=== PATIENT | female | born 1955 | race Caucasian/White ===

== ENCOUNTER 2017-02-10 08:44 | Inpatient (IN) | payer BC ==
[2017-02-03 16:03] LABS: HEMATOCRIT 34.3 % (36.0-48.0); HEMOGLOBIN 11.1 g/dL (12.0-16.0)
[2017-02-03 16:15] LABS: BUN (BLOOD UREA NITROGEN) 5 MG/DL (6-23); CALCIUM, SERUM 8.7 MG/DL (8.5-10.4); CHLORIDE, SERUM 98 MMOL/L (96-112); CO2 (CARBON DIOXIDE) 30 MMOL/L (24-34); CREATININE 0.74 MG/DL (0.55-1.02); GFR AFRICAN AMERICAN 100 ML/MIN (>=60); GFR NON AFRICAN AMERICAN 86 ML/MIN (>=60); GLUCOSE, SERUM 126 MG/DL (60-99); POTASSIUM, SERUM 4.5 MMOL/L (3.5-5.3); SODIUM, SERUM 134 MMOL/L (135-148)
--- NOTE | ~2017-02-10 | CN ---
Consultation Report [facility] [address] [place]. [address] NAME: DOUG MARCH : 51 STATUS : ADM IN PAT#: [id number] AGE: 61 ADM/REG DATE : 02/10/17 MR#: [id number] REPORT SERV DATE: 02/16/17 DICTATED BY: TAB MONTENEGRO DATE: 02/16/17 REPORT STATUS : Draft TRANSCRIBED BY: MODL DATE: 02/16/17 CONSULTATION DATE OF CONSULTATION: REASON FOR CONSULTATION: Hyponatremia. HISTORY OF PRESENT ILLNESS: This is a fairly pleasant, 61-year-old, obese, , female patient we were asked to see for evaluation of hyponatremia. It appears that she is chronically hyponatremic with sodiums ranging 129-[address] back to 2010. Today, her sodium reads at 125, and she is postop day [address] Compa Rodriguez's surgical intervention of cervical spondylosis with cord and nerve root compression with C4-C5, C5-C6, and C6-C7 anterior interbody arthrodesis with application of prosthetic devices C4-5, C5-6, C6-7 and anterior instrumentation on C4 through 7. It appears that she was provided lactated Ringer's at surgical intervention at approximately 1200 mL total. Postoperatively, she received normal saline on 02/12 at 80 mL an hour and continues to receive infusing saline at the point of evaluation. The patient states that she is chronically known to be hyponatremic and has been followed in our office by Dr. Lee Robles. I do not have an indication at this point, baseline sodium at our office. She has been restricted on p.o. fluids as she is known to have chronic SIADH. She is maintained chronically on Prozac medication and has been so since November of this year per her recall. The medication monitor would include chronic SIADH as a probable side-effect sequelae. The patient is awake and alert this morning, lying in bed during evaluation. She is anxious to exit home and is disappointed that she continues to have difficulty that has maintained her hospitalization. She denies current chest pain. No nausea, vomiting, or diarrhea. PAST MEDICAL HISTORY: Includes the following: Chronic hyponatremia with previous SIADH diagnosis; diabetes mellitus type 2, insulin dependent; chronic pain; hypertension; irritable bowel syndrome; Angulo's esophagus; obesity; cervical spondylosis with surgical correction as listed above; history of hyperthyroidism; history of depression and anxiety; and IBS. REVIEW OF SYSTEMS: Completed. Please see HPI for pertinent details. SOCIAL HISTORY: No ETOH. No illicit drugs. No tobacco by our review. CURRENT MEDICATIONS AND ALLERGIES: As follows: She lists allergies to Savella, sulindac, doxycycline, fluconazole, and amlodipine. Active medications include, Zovirax 400 mg p.o. b.i.d., atenolol 50 mg p.o. b.i.d., Bentyl 20 mg p.o. b.i.d., ProSom 2 mg p.o. at bedtime, fentanyl one patch topically q.72, Prozac 40 mg p.o. daily, Lasix 20 mg daily, sliding scale NovoLog insulin 24 units at bedtime, Consultation Report [address] [place]. [address] NAME: DOUG MARCH : 51 STATUS : ADM IN [facility]#: [id number] AGE: 61 ADM/REG DATE : 02/10/17 MR#: [id number] REPORT SERV DATE: 02/16/17 DICTATED BY: TAB MONTENEGRO DATE: 02/16/17 REPORT STATUS : Draft TRANSCRIBED BY: MANNY DATE: 02/16/17 degludec, Prevacid 30 mg p.o. b.i.d., Linzess 290 mcg p.o. daily, Prinivil 40 mg p.o. daily, Robaxin 750 mg p.o. t.i.d. p.r.n., oxycodone 15 mg p.o. daily p.r.n. four times daily, Phenergan 25 mg p.o. t.i.d. p.r.n. PHYSICAL EXAMINATION: VITAL SIGNS: Blood pressure 155/63, temperature at 98.3, heart rate 93 beats per minute and regular. GENERAL: She is awake, alert, and oriented x3, in no acute distress. 1500 mL and no indication of urinary output is recorded; however, the patient states that she has had reasonable urinary output. HEENT: Normocephalic, atraumatic. Normal ocular movements. No scleral icterus. No conjunctival pallor is appreciated. NECK: Supple without thyromegaly. No JVD. No mass. There is bandage to the right front side of her neck. CHEST: Shows positive S1 and S2. No rubs or gallops. LUNGS: Diminished. Clear to auscultation throughout. Normal expansion and effort bilaterally. GI: She has an obese, rounded abdomen. Positive bowel sounds in all four quadrants. No appreciable mass or tenderness. : Examination is deferred. EXTREMITIES: Show positive pulses in all four extremities. No clubbing, cyanosis, or edema. NEUROLOGIC: She appears to be grossly intact. Nonfocal. SKIN: Warm, dry, and intact to visualized surfaces with bandages to the neck area as above. PSYCH: She appears to be of appropriate mood and affect. LABORATORY DATA: Pertinent laboratories and imaging to this evaluation: Most recent electrolyte profile shows a sodium of 125, potassium 3.9, chloride 87, CO2 of 27, BUN 9, creatinine 0.68, reflected GFR at 93 mL/minute, glucose 198, calcium 8.4. Most recent CBC on date of surgery: 12.3 white count, platelets of 301, hemoglobin 12.1, and hematocrit at 37.1. No further data in regard to that information exists post that date. IMPRESSION AND PLAN: This is an obese, , female patient with chronic pain issues, status post surgical intervention by Dr. Compa Rodriguez and is now postop day 6 with chronic hyponatremia noted by history with a historical diagnosis of syndrome of inappropriate secretion of antidiuretic hormone, who received lactated Ringer's during surgical intervention at 1200 mL total and has received normal saline postoperatively and continues to receive normal saline. Currently, she is maintained chronically on Prozac which may also be contributing to her further difficulty with hyponatremia with syndrome of inappropriate secretion of antidiuretic hormone as a sequelae of use of that medication listed in its marker. Currently, we will INT her fluids, check urine sodium, urine osm. Restrict her fluid intake at 1000 mL. Bumex 2 mg, now added in 8 hours. Likely that this is a continuation of her chronic syndrome of inappropriate secretion of antidiuretic hormone, we will work to assist her in returning her sodium to at least 130 or above. See no indication clinically from a neurologic standpoint, to be any more aggressive with the use of other Consultation Report [place] [address] [place]. [address] NAME: DOUG MARCH DUSTIN : 51 STATUS : ADM IN PAT#: [id number] AGE: 61 ADM/REG DATE : 02/10/17 MR#: [id number] REPORT SERV DATE: 02/16/17 DICTATED BY: TAB MONTENEGRO DATE: 02/16/17 REPORT STATUS : Draft TRANSCRIBED BY: MANNY DATE: 02/16/17 tools. May consider, if she is not responsive to fluid restriction over the next 24 hours in measures as taken above, the use of tolvaptan if clinically warranted. Otherwise, maintain her other medications and other current treatment plan which will be deferred to the hospitalist team. Further modification of treatment plan may be made based on her clinical presentation, the patient's laboratory results, and further consultation with Renal attending. We appreciate the consultation. We are glad to follow this patient with you. DICTATED BY: Macario Jacob NP JR/MANNY Tab Montenegro M.D. / [id number] CC: Angella Mir II, Leslie Armstrong
--- NOTE | ~2017-02-10 | DS ---
Discharge Summary [facility] [address] [place]. [address] NAME: DOUG MARCH : 51 STATUS : DIS IN PAT#: [id number] AGE: 61 ADM/REG DATE : 02/10/17 MR#: [id number] REPORT SERV DATE: 03/05/17 DICTATED BY: LEVI RODRIGUEZ II DATE: 03/04/17 REPORT STATUS : Draft TRANSCRIBED BY: MANNY DATE: 03/04/17 Data Collection from hospitalization DISCHARGE DIAGNOSES: 1. Cervical spondylosis with cord and nerve root compression. 2. 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 3. Diabetes. 4. Hypertension. 5. Depression. 6. Fibromyalgia. 7. Gastroesophageal reflux disease. 8. Hyperthyroidism. 9. Hyperglycemia. 10.Irritable bowel syndrome. 11.Lupus erythematosus. 12.Osteoarthritis. 13.Former smoker. CONSULTATIONS: Tab Moctezuma MD; STAN Craven; and Laya Karimi MD. PROCEDURES: 1. C4-C5, C5-C6, C6-C7 anterior interbody arthrodesis; application of prosthetic devices, C4-C5, C5-C6, and C6-C7; use of anterior instrumentation, C4-C7 (4 segment); use of allograft substitute and bone marrow aspirate; use of microscope; 02/10/2017. 2. Upper GI endoscopy, 02/20/2017. 3. Modified barium swallow study, 02/18/2017. 4. Modified barium swallow study, 02/20/2017. PATHOLOGY: Bone and tissue, cervical spine - Fragments of hyaline cartilage with degenerative changes, bone present. DISCHARGE MEDICATIONS: Zovirax 400 mg twice a day, Tenormin 50 mg twice a day, Valium 5 mg four times a day as needed, Bentyl 20 mg twice a day, Prosom 2 mg at bedtime, Duragesic one patch topically every 72 hours, Prozac 40 mg daily, Lasix 20 mg daily, NovoLog injection insulin as instructed, Tresiba 24 units at bedtime, Prevacid 30 mg twice a day, Linzess 290 mcg before breakfast, Prinivil 40 mg every morning, Robaxin 750 mg three times a day as needed, Roxicodone 15-30 mg every 4 to 6 hours as needed, Phenergan 25 mg three times a day as needed. CONDITION AT DISCHARGE: Stable. DISPOSITION: The patient was discharged home on a regular diet with activities as instructed. She would follow up with me, 03/03/2017. HOSPITAL COURSE: This is a 61-year-old female who had been complaining of cervical, thoracic, and lumbar related symptoms. She also had radiation into the bilateral upper and lower extremities with associated pain radiating into the bilateral upper extremities. There was swelling in the right lower extremity, numbness, tingling, and weakness. The Discharge Summary [place] [id number] [address] NAME: DOUG MARCH : 51 STATUS : DIS IN PAT#: [id number] AGE: 61 ADM/REG DATE : 02/10/17 MR#: [id number] REPORT SERV DATE: 03/05/17 DICTATED BY: LEVI RODRIGUEZ II DATE: 03/04/17 REPORT STATUS : Draft TRANSCRIBED BY: MANNY DATE: 03/04/17 patient has cervical spondylosis with cord and nerve root compression. She also has discogenic neck pain with upper extremity radiculitis. Treatment options were discussed and it was elected to proceed with surgical intervention. She was admitted to the hospital at this time for further evaluation and treatment. Upon admission, she was taken to the operating room where she underwent the above-mentioned procedure. She tolerated this well, and there were no complications. On postop day 1, she was seen by Dr. Laya Karimi MD. She did have some nausea. She usually takes NovoLog with meals. She is on Tresiba at home, mealtime NovoLog was going to be added to her regimen. It was felt that Decadron has likely caused hyperglycemia. On the , she was comfortable, she had no chest pain or shortness of breath. She was evaluated by Physical Therapy. She denied having any dysphagia. She just had a sore throat. Blood pressure was still elevated. Hydralazine was added. On the , she was complaining of having a headache and some neck pain. She had postsurgical hyponatremia. On the , she was seen by Dr. Tab Moctezuma regarding hyponatremia. She was now postop day 6 with chronic hyponatremia noted by history with a historical diagnosis of syndrome of inappropriate secretion of antidiuretic hormone. She had received lactated Ringer's during the surgical intervention and had received normal saline postoperatively and continued to receive normal saline. Currently, she is maintained chronically on Prozac which may be contributing to her further difficulty with hyponatremia with syndrome of inappropriate secretions of antidiuretic hormone as a sequelae of use of that medication listed in its marker. Fluids were adjusted. We were going to check urine sodium and urine osmolality. We would restrict her fluid intake to 1000 mL. Bumex was given. It was felt that this likely was a continuation of her chronic syndrome of inappropriate secretion of antidiuretic hormone. We would work to assist her in returning her sodium to at least 130 or higher. There was no indication clinically from a neurologic standpoint to be any more aggressive with the use of other tools. On 02/17/2017, she was in no acute distress. She had no dyspnea. Magnesium supplementation was given. Sodium was near baseline. She had decreased oral intake secondary to her dysphagia. She had some difficulty swallowing. Insulin was adjusted. Hemoglobin A1c was 8.8 in June of 2016. We encouraged her to mobilize. On the , a modified barium swallow study was performed. She had no overt signs and symptoms of aspiration. Aspiration precautions were in place. She was made a strict n.p.o. status. Her Protonix was changed to IV dosing. On the , she was seen by Crow Gerber for evaluation and management of dysphagia and aspiration. She has a history of Angulo's esophagus and is followed by Dr. Awad. Her last EGD was in 2013. She said she had esophageal dilation in the past. It was felt that we should pursue endoscopy the following morning looking in her esophagus for any abnormalities that may be contributing to this. We discussed PEG tube placement if her dysphagia did not improve, and she seemed agreeable to that. Repeat modified barium swallow study was going to be performed. Levemir was increased. Scheduled NovoLog was stopped. On 02/20/2017, she was taken to the endoscopic suite where she underwent upper GI endoscopy by Dr. Jesus Ruiz. This was a normal examination. No cause for dysphagia was seen. Modified barium swallow study was also performed. On the , she said she had been able to eat a little. She did complain of some increased soreness in her neck. Ice was applied to her neck. Atenolol and lisinopril had been resumed. Discharge planning was performed. She was beginning to tolerate a soft diet. Her Discharge Summary [place] [id number] [place] [address] NAME: DOUG MARCH : 51 STATUS : DIS IN PAT#: [id number] AGE: 61 ADM/REG DATE : 02/10/17 MR#: [id number] REPORT SERV DATE: 03/05/17 DICTATED BY: LEVI RODRIGUEZ II DATE: 03/04/17 REPORT STATUS : Draft TRANSCRIBED BY: MODL DATE: 03/04/17 pain was improving considerably. On 02/23/2017, she was alert and cooperative. She had no focal deficits. Her postoperative dysphagia had resolved. Discharge instructions were given. Due to her improved and stable condition, she was discharged home with the above- stated instructions. Information collected by: Carrie Polanco I submit the above information as my discharge summary. PAOLA/AMNNY Levi Rodriguez II, M.D. / [id number] CC: Angella Mir II, NP Destin Griffin-Trussell, FNP Nathan Chamberlain, M.D.
--- NOTE | ~2017-02-10 | OP ---
Record Of Operation [facility] [address] [place]. [address] NAME: DOUG MARCH : 51 STATUS : ADM IN [facility]#: [id number] AGE: 61 ADM/REG DATE : 02/10/17 MR#: [id number] REPORT SERV DATE: 02/11/17 DICTATED BY: LVEI RODRIGUEZ II DATE: 02/11/17 REPORT STATUS : Draft TRANSCRIBED BY: MODL DATE: 02/11/17 DATE OF PROCEDURE: 02/10/2017 PREOPERATIVE DIAGNOSES: 1. Cervical spondylosis with cord and nerve root compression. 2. 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 POSTOPERATIVE DIAGNOSES: 1. Cervical spondylosis with cord and nerve root compression. 2. 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 PROCEDURES: 1. C4-5, C5-6, C6-7 anterior interbody arthrodesis. 2. Application of prosthetic devices, C4-5, C5-6, and C6-7. 3. Use of anterior instrumentation, C4-7 (four segments). 4. Use of allograft substitute and bone marrow aspirate. 5. Use of the microscope. SURGEON: Levi Rodriguez M.D. FLUIDS: 1700 mL LR. ESTIMATED BLOOD LOSS: 30 mL. DRAINS: One drain. COMPLICATIONS: None. IMPLANTS: Alphatec. PREOPERATIVE HISTORY: This is a very friendly 61-year-old female suffering with discogenic neck pain with significant radiation into the upper extremities. We discussed the pros and cons of the surgery. We discussed diabetic management. She is in pain management and has overall failed nonoperative care. We discussed the rates of success versus failure of the surgery to decrease neck and arm pain respectively. We discussed the risks as well. DESCRIPTION OF PROCEDURE: After informed consent was obtained, the patient was brought to the operating room at her request, and general anesthesia was achieved. She was placed in in the supine position, and the neck and iliac crest were prepped and draped in a sterile fashion. The 5 mL of bone marrow was aspirated from the iliac crest followed by a right- sided longitudinal incision. The interval was explored and the retropharyngeal approach was completed. The subperiosteal exposure was performed and the agile developer retractor was placed. The Downey pins were now placed. Record Of Operation [facility] [address] [place]. [address] NAME: DOUG MARCH : 51 STATUS : ADM IN PAT#: [id number] AGE: 61 ADM/REG DATE : 02/10/17 MR#: [id number] REPORT SERV DATE: 02/11/17 DICTATED BY: LEVI RODRIGUEZ II DATE: 02/11/17 REPORT STATUS : Draft TRANSCRIBED BY: MODViet DATE: 02/11/17 Under microscopic visualization, the C6-7 level was addressed with diskectomy with the pituitary rongeurs, Kerrison rongeurs, and the curettes. The endplates were denuded of their cartilage. The posterior significant osteophytes were now removed with the high-speed key and the Kerrison rongeurs. The posterior longitudinal ligament was also removed. At this point, we identified more compression of the spinal cord than I had anticipated based upon the MRI. The foraminal osteophytes as anticipated were significantly compressing the exiting nerve roots. At this point, the nerve hook was passed out bilateral foramen. The prosthetic device was now chosen and placed at C6-7. This contained allograft substitute and bone marrow aspirate. Next, the similar approach was performed for the C5-6 disk. The diskectomy and endplate preparation were prepared in a similar manner. We then removed the posterior longitudinal ligament followed by removal of the osteophytes. The posterior longitudinal ligament was then also removed to decompress the spinal cord and nerve roots. The prosthetic device was then chosen. Lastly, the C4-5 level was addressed in a similar manner with diskectomy and endplate preparation, and removal of the posterior osteophytes. The prosthetic device was then placed followed by removal of the Downey pins. Next, the anterior fixation device was chosen and put into place. Two screws were then placed in the C4, C5, C6, and C7. We used the 16 mm screws which were the longest available. The bone quality was slightly soft. We used the rescue screws. A deep drain was placed and the fluoroscopy confirmed acceptable placement of the implants. Standard closure was now performed, and the patient was extubated and transferred to the PACU in stable condition. LISA/MANNY Levi Rodriguez II, M.D. / [id number] CC: Angella Mir II, M.D. Richard Brackett, M.D.
--- NOTE | ~2017-02-10 | CN ---
Consultation Report [facility] [address] [place]. [address] NAME: DOUG GROSSMAN : 51 STATUS : ADM IN PAT#: [id number] AGE: 61 ADM/REG DATE : 02/10/17 MR#: [id number] REPORT SERV DATE: 02/19/17 DICTATED BY: PARISH HOSKINS DATE: 02/19/17 REPORT STATUS : Draft TRANSCRIBED BY: MODL DATE: 02/19/17 GI CONSULTATION DATE OF CONSULTATION: 02/19/2017 REASON FOR CONSULTATION: Evaluation and management of dysphagia, aspiration. HISTORY OF PRESENT ILLNESS: Ms. Grossman is a pleasant 61-year-old female patient, known to Dr. Edgar Awad in the outpatient setting, who presented to [facility] on 02/[address] Rodriguez. On that day, she underwent surgical intervention for cervical spondylosis with cord and nerve root compression. She had C4-C5, C5-C6, C6-C7 anterior interbody arthrodesis with application of a prosthetic device at C4-C5, C5-C6, C6-C7 and anterior instrumentation on C4 through C7. She complained of a sore throat postoperatively, but no dysphagia symptoms. However, she has progressively had difficulty with tolerating liquids and solids. She states that she feels like she chews for a prolonged period of time. She swallows and then has to regurgitate some of her food back up. She had a modified barium swallow study done on 02/18/2017. Speech Therapy recommended icing her neck as often as able to tolerate. She exhibited aspiration of all material presented, thin, nectar, pudding, thick liquids with delayed throat clear. She is unable to cough strong enough to clear her aspirations. She had moderate residue with all consistencies and silently aspirated all consistencies. She had noted swelling of the posterior pharyngeal wall tissue above the level of the hardware. The hardware starts at the level at which the epiglottis is supposed to invert to fill off the airway. They voiced concerns that even with swelling decreased, she would have a high risk for aspiration. Secondary to this, GI was consulted. 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 Her last EGD was in 2013, normal duodenum, she had gastritis and esophageal mucosal changes secondary to short-segment Angulo's. She does tell me that in the past she has had to have esophageal dilation. I have discussed with her we will plan on pursuing endoscopy in the morning, looking in her esophagus for any abnormalities that could be contributing to this. I also did discuss with her PEG tube placement if her dysphagia does not improve, she seemed agreeable to that. However, per the review of notes, she is supposed to have a repeat modified barium swallow study done tomorrow after she received Decadron yesterday to see if that helped the swelling and will help with her dysphagia. I discussed risks, benefits, alternatives, and complications with her to include, but not limited to risk of bleeding, perforation, infection, reaction to medication, as well as cardiac and pulmonary side effects. She gives consent to proceed with EGD. PAST MEDICAL HISTORY: Positive for a short-segment Angulo esophagus; chronic hyponatremia with a history of SIADH; kyphoplasty, T12 fracture; hypertension; chronic pain syndrome, on chronic narcotics; hyperthyroidism; depression; anxiety; irritable bowel syndrome; hyperlipidemia; type 2 diabetes; obesity; connective tissue disorder; fibromyalgia. PAST SURGICAL HISTORY: Cholecystectomy, tubal ligation, tonsillectomy, adenoidectomy, recent C4 through C7 ACDF. Consultation Report [address] [place]. [address] NAME: DOUG GROSSMAN : 51 STATUS : ADM IN [facility]#: [id number] AGE: 61 ADM/REG DATE : 02/10/17 MR#: [id number] REPORT SERV DATE: 02/19/17 DICTATED BY: PARISH HOSKINS DATE: 02/19/17 REPORT STATUS : Draft TRANSCRIBED BY: MANNY DATE: 02/19/17 SOCIAL HISTORY: No tobacco, cessation in 2010. Denies alcohol. No illicit drugs. FAMILY HISTORY: Noncontributory from a GI standpoint. ALLERGIES: TO SAVELLA, SULINDAC, DOXYCYCLINE, FLUCONAZOLE, AND AMLODIPINE. HOME MEDICATIONS: Zovirax, Tenormin, Bentyl, ProSom, fentanyl Duragesic patch, Prozac, Lasix, NovoLog, Tresiba, Prevacid, Linzess, Proventil, Robaxin, Roxicodone, and Phenergan. REVIEW OF SYSTEMS: A 10-point review of systems has been obtained with pertinent positives being addressed in the history of present illness. PERTINENT LABORATORY DATA: Sodium 131, potassium 3.7, BUN is 6, creatinine is 0.59. White count is 5.6, hemoglobin 12, hematocrit 35.8, platelet count 285. PHYSICAL EXAMINATION: VITAL SIGNS: Temperature 98.6, pulse 107, respirations 20, and blood pressure 166/77. NEURO: Reveals an alert, obese female, resting in bed. She awakens to name, but she is hard of hearing. She is alert and oriented x3. GENERAL: She is cooperative. She is in no apparent distress. HEAD, EARS, EYES, NOSE, AND THROAT: Anicteric. Pupils equal, round, reactive to light and accommodation. Normocephalic and atraumatic. NECK: She has a very thick neck with a right-sided dressing, which is clean, dry and intact. LUNGS: Decreased throughout with normal respiratory effort exhibited. CARDIOVASCULAR SYSTEM: Regular rate and rhythm. ABDOMEN: Soft and nontender. Active bowel sounds. No organomegaly. She has an obese abdomen. EXTREMITIES: No edema. Normal distal pulses. SKIN: Warm, dry, and intact. ASSESSMENT: 1. Postoperative oropharyngeal dysphagia, aspiration of all consistencies. 2. Chronic hyponatremia with a history of SIADH. 3. Type 2 diabetes. 4. History of cervical spondylosis, status post C4 through C7 ACDF. 5. History of short-segment Angulo esophagus. PLAN: We will plan for EGD to assess esophagus and stomach tomorrow. I did discuss with the patient PEG tube if she is unable to pass her modified barium swallow study and no abnormalities are found, she is agreeable; however, that will be at a later date. We will follow up her modified barium swallow study repeat tomorrow after EGD and potentially have to place a PEG tube at a later date. I did discuss with her that might not be amenable to Consultation Report [facility] [id number] [place]. [address] NAME: DOUG GROSSMAN : 51 STATUS : ADM IN [facility]#: [id number] AGE: 61 ADM/REG DATE : 02/10/17 MR#: [id number] REPORT SERV DATE: 02/19/17 DICTATED BY: PAR[facility] HOSKINS DATE: 02/19/17 REPORT STATUS : Draft TRANSCRIBED BY: MODViet DATE: 04/13/17 endoscopic placement secondary to swelling noted on Speech Therapy's note. If that was the case, she would have to go to Interventional Radiology for placement of G-tube. We will follow. KAYCEE/MANNY Parish STAN Gerber / [id number] CC: Angella Mir II,Adela Zabala
--- NOTE | ~2017-02-10 | EGD ---
EGD REPORT [facility] [address] [address] NAME: DOUG GROSSMAN : 51 STATUS : ADM IN PAT#: [id number] AGE: 61 ADM/REG DATE : 02/10/17 MR#: [id number] REPORT SERV DATE: 02/20/17 DICTATED BY: JESUS BURNETT DATE: 02/20/17 REPORT STATUS : Draft TRANSCRIBED BY: [facility] DATE: 02/20/17 Endoscopy Center Patient Name: Doug Grossman Date of : 1955 Attending MD: JESUS BURNETT MD Procedure Date No Time: 02/20/2017 Procedure: Upper GI endoscopy Indications: Dysphagia Referring MD: JAMES EDMONDS Medicines: Monitored Anesthesia Care Complications: No immediate complications. Estimated blood loss: None. Procedure: Pre-Anesthesia Assessment: - ASA Grade Assessment: III - A patient with severe systemic disease. After obtaining informed consent, the endoscope was passed under direct vision. Throughout the procedure, the patient's blood pressure, pulse, and oxygen saturations were monitored continuously. The GIF [id number] was introduced through the mouth, and advanced to the second part of duodenum. The upper GI endoscopy was accomplished without difficulty. The patient tolerated the procedure well. Findings: The examined esophagus was normal. The stomach was normal. The examined duodenum was normal. The cardia and gastric fundus were normal on retroflexion. Impression: - Normal examination. - No cause for dysphagia seen Recommendation: - Return patient to [facility] for [facility] care. - Further evaluation per Speech and Swallow - Can consider PEG if dysphagia/aspiration precautions will be prolonged Procedure Code(s): --- Professional --- 13451, Esophagogastroduodenoscopy, flexible, transoral; diagnostic, including collection of specimen(s) by brushing or washing, when performed (separate procedure) Diagnosis Code(s): --- Professional --- R13.10, Dysphagia, unspecified EGD REPORT [facility] [address] [place] [address] NAME: DOUG GROSSMAN : 51 STATUS : ADM IN PAT#: [id number] AGE: 61 ADM/REG DATE : 02/10/17 MR#: [id number] REPORT SERV DATE: 02/20/17 DICTATED BY: JESUS BURNETT DATE: 02/20/17 REPORT STATUS : Draft TRANSCRIBED BY: [employer] DATE: 02/20/17 CPT copyright 2013 [employer]. All rights reserved. The codes documented in this report are preliminary and upon executive advisor review may be revised to meet current compliance requirements. Jesus Burnett MD JESUS BURNETT MD 02/20/2017 7:35 AM This report has been signed electronically. Number of Addenda: 0 Note Initiated On: 02/20/2017 6:51 AM Scope Withdrawal Time 0 hours 0 minutes 0 seconds [address] [place] [address]
[~2017-02-10 08:44] MED LIST: ACET500CAP PO; AMIT75 PO; AMITIZA8 MCG PO; ASAB PO; ATEN50 PO; BENTYL10 PO; BENTYL20 PO; BL FLAX SEED1000 MG OR; CALTRA600D PO; CRESTOR10 PO; CYANO1000T PO; CYMBALTA60 PO; DCN100 PO; DURA25 TOP; FISH OIL1200 MG PO; FISH-EPA1000 MG PO; FLAXSEED OIL1200 MG PO; GLUCCHONDR PO; GLUCPH PO; HUMALOG SC; INSNOVN SC; L20 PO; LANTUS FOR SC; LANTUS SC; LEVEMIR SC; LINZESS 290 M290 MCG PO; LISINOPRIL40 MG PO; LORT7 PO; MAGNESIUM OXIDE TAB PO; MAGOX4 PO; METHIMAZOLE5 MG; METHOC750B PO; NEUR300 PO; NOVOLOG; NOVOLOG SC; PLAQ200B PO; POT GLUCONAT550 M1 PO; POTASSIUM95 MG PO; PR25 PO; PREV15 PO; PREV30 PO; PROBIOTIC PO; PROSOM 2 MG TAB2 MG PO; PROZAC40 MG PO; REGLAN10 MG PO; RESTORIL30 MG PO; ROXICODONE15 MG PO; SENTAB PO; SPIRO25 PO; SUCR PO; TAPAZOLE5 MG PO; TRAZ50; TRESIBA FL100 UNIT/1; VICODINTAB PO; VITAMIN A8000 UNIT PO; VITAMIN D31000 UNIT PO; VITAMINS/HERBS; ZOFRAN4; ZOVI200CAP PO; ZOVIRAX400 MG PO; [UNRECOGNIZED DRUG - OTHER] PO
[2017-02-11 10:18] LABS: BASOPHILS 0 %; EOSINOPHILS 0 %; HEMATOCRIT 37.1 % (36.0-48.0); HEMOGLOBIN 12.1 g/dL (12.0-16.0); IMMATURE GRANULOCYTES 0.2 %; IMMATURE GRANULOCYTES ABSOLUTE 0.02 10/3/uL (0.0-0.11); LYMPHOCYTES 5.5 %; LYMPHOCYTES ABSOLUTE 0.67 10/3/uL (0.67-4.30); MEAN CORPUS HGB CONC 32.6 g/dL (32.0-36.0); MEAN CORPUSCULAR HEMOGLOB 28.6 pg (26.0-34.0); MEAN PLATELET VOLUME 9.6 fL (9.2-13.0); MONOCYTES 4.9 %; NEUTROPHILS 89.4 %; PLATELET COUNT 301 10/3/uL (150-400)
[2017-02-11 10:25] LABS: MANUAL DIFF NO %; MEAN CORPUSCULAR VOLUME 87.7 fL (80-100); RBC DISTRIBUTION WIDTH 17.4 % (12.0-16.0); RED CELL COUNT 4.23 10/6/uL (4.0-5.6); WHITE BLOOD CELLS 12.3 10/3/uL (4.5-10.5)
[2017-02-11 10:31] LABS: CALCIUM, SERUM 9.1 MG/DL (8.5-10.4); CHLORIDE, SERUM 92 MMOL/L (96-112); CREATININE 0.82 MG/DL (0.55-1.02); GFR AFRICAN AMERICAN 88 ML/MIN (>=60); GFR NON AFRICAN AMERICAN 76 ML/MIN (>=60); POTASSIUM, SERUM 5.3 MMOL/L (3.5-5.3); SODIUM, SERUM 129 MMOL/L (135-148)
[2017-02-11 10:32] LABS: BUN (BLOOD UREA NITROGEN) 11 MG/DL (6-23); CO2 (CARBON DIOXIDE) 24 MMOL/L (24-34); GLUCOSE, SERUM 367 MG/DL (60-99)
[2017-02-12 10:39] LABS: BUN (BLOOD UREA NITROGEN) 10 MG/DL (6-23); CALCIUM, SERUM 8.9 MG/DL (8.5-10.4); CHLORIDE, SERUM 93 MMOL/L (96-112); CO2 (CARBON DIOXIDE) 27 MMOL/L (24-34); CREATININE 1.05 MG/DL (0.55-1.02); GFR AFRICAN AMERICAN 65 ML/MIN (>=60); GFR NON AFRICAN AMERICAN 56 ML/MIN (>=60); GLUCOSE, SERUM 295 MG/DL (60-99); SODIUM, SERUM 129 MMOL/L (135-148)
[2017-02-13 05:27] LABS: BUN (BLOOD UREA NITROGEN) 9 MG/DL (6-23); CALCIUM, SERUM 8.9 MG/DL (8.5-10.4); CHLORIDE, SERUM 91 MMOL/L (96-112); CO2 (CARBON DIOXIDE) 30 MMOL/L (24-34); CREATININE 0.65 MG/DL (0.55-1.02); GFR AFRICAN AMERICAN 110 ML/MIN (>=60); GFR NON AFRICAN AMERICAN 94 ML/MIN (>=60); POTASSIUM, SERUM 4.2 MMOL/L (3.5-5.3); SODIUM, SERUM 129 MMOL/L (135-148)
[2017-02-13 05:32] LABS: GLUCOSE, SERUM 151 MG/DL (60-99)
[2017-02-14 05:33] LABS: BUN (BLOOD UREA NITROGEN) 8 MG/DL (6-23); CALCIUM, SERUM 9.1 MG/DL (8.5-10.4); CHLORIDE, SERUM 89 MMOL/L (96-112); CO2 (CARBON DIOXIDE) 31 MMOL/L (24-34); CREATININE 0.79 MG/DL (0.55-1.02); GFR AFRICAN AMERICAN 92 ML/MIN (>=60); GFR NON AFRICAN AMERICAN 80 ML/MIN (>=60); SODIUM, SERUM 131 MMOL/L (135-148)
[2017-02-14 05:34] LABS: GLUCOSE, SERUM 238 MG/DL (60-99)
[2017-02-15 06:30] LABS: BUN (BLOOD UREA NITROGEN) 6 MG/DL (6-23); CHLORIDE, SERUM 89 MMOL/L (96-112); CREATININE 0.63 MG/DL (0.55-1.02); GFR AFRICAN AMERICAN 111 ML/MIN (>=60); GFR NON AFRICAN AMERICAN 95 ML/MIN (>=60); GLUCOSE, SERUM 261 MG/DL (60-99); POTASSIUM, SERUM 4.2 MMOL/L (3.5-5.3); SODIUM, SERUM 125 MMOL/L (135-148)
[2017-02-15 06:32] LABS: CO2 (CARBON DIOXIDE) 26 MMOL/L (24-34)
[2017-02-15 16:29] LABS: ULTRASENSITIVE TSH 0.246 MCIU/ML (0.358-3.740)
[2017-02-16 05:20] LABS: BUN (BLOOD UREA NITROGEN) 9 MG/DL (6-23); CALCIUM, SERUM 8.4 MG/DL (8.5-10.4); CHLORIDE, SERUM 87 MMOL/L (96-112); CO2 (CARBON DIOXIDE) 27 MMOL/L (24-34); CREATININE 0.68 MG/DL (0.55-1.02); GFR AFRICAN AMERICAN 108 ML/MIN (>=60); GFR NON AFRICAN AMERICAN 93 ML/MIN (>=60); POTASSIUM, SERUM 3.9 MMOL/L (3.5-5.3); SODIUM, SERUM 125 MMOL/L (135-148)
[2017-02-16 05:21] LABS: GLUCOSE, SERUM 198 MG/DL (60-99)
[2017-02-16 12:25] LABS: OSMOLALITY, URINE 347 MOSM/KG (50-1200)
[2017-02-16 12:28] LABS: SODIUM, URINE 48 MEQ/L
[2017-02-17 04:26] LABS: BASOPHILS 0.1 %; BASOPHILS ABSOLUTE 0.01 10/3/uL (0.0-0.16); EOSINOPHILS 1.5 %; EOSINOPHILS ABSOLUTE 0.12 10/3/uL (0.0-0.53); HEMOGLOBIN 10.8 g/dL (12.0-16.0); IMMATURE GRANULOCYTES 0.3 %; IMMATURE GRANULOCYTES ABSOLUTE 0.02 10/3/uL (0.0-0.11); LYMPHOCYTES 8.6 %; LYMPHOCYTES ABSOLUTE 0.68 10/3/uL (0.67-4.30); MEAN CORPUS HGB CONC 33.3 g/dL (32.0-36.0); MEAN CORPUSCULAR VOLUME 87.1 fL (80-100); MEAN PLATELET VOLUME 10.1 fL (9.2-13.0); MONOCYTES 8.6 %; MONOCYTES ABSOLUTE 0.68 10/3/uL (0.21-1.20); NEUTROPHILS 80.9 %; NEUTROPHILS ABSOLUTE 6.36 10/3/uL (2.02-8.40); PLATELET COUNT 248 10/3/uL (150-400); RBC DISTRIBUTION WIDTH 17.2 % (12.0-16.0); RED CELL COUNT 3.72 10/6/uL (4.0-5.6); WHITE BLOOD CELLS 7.9 10/3/uL (4.5-10.5)
[2017-02-17 04:30] LABS: HEMATOCRIT 32.4 % (36.0-48.0); MANUAL DIFF NO %
[2017-02-17 04:46] LABS: ALBUMIN 2.7 G/DL (3.5-5.0); BUN (BLOOD UREA NITROGEN) 9 MG/DL (6-23); CALCIUM, SERUM 8.5 MG/DL (8.5-10.4); CHLORIDE, SERUM 91 MMOL/L (96-112); CREATININE 0.83 MG/DL (0.55-1.02); GFR AFRICAN AMERICAN 87 ML/MIN (>=60); GFR NON AFRICAN AMERICAN 75 ML/MIN (>=60); GLUCOSE, SERUM 217 MG/DL (60-99); PHOSPHORUS, SERUM 3.1 MG/DL (2.5-4.5); POTASSIUM, SERUM 4.6 MMOL/L (3.5-5.3); SODIUM, SERUM 128 MMOL/L (135-148)
[2017-02-17 04:58] LABS: CO2 (CARBON DIOXIDE) 32 MMOL/L (24-34)
[2017-02-18 04:46] LABS: ALBUMIN 2.6 G/DL (3.5-5.0); BUN (BLOOD UREA NITROGEN) 7 MG/DL (6-23); CALCIUM, SERUM 8.3 MG/DL (8.5-10.4); CHLORIDE, SERUM 91 MMOL/L (96-112); CO2 (CARBON DIOXIDE) 30 MMOL/L (24-34); CREATININE 0.66 MG/DL (0.55-1.02); GFR AFRICAN AMERICAN 109 ML/MIN (>=60); GFR NON AFRICAN AMERICAN 94 ML/MIN (>=60); GLUCOSE, SERUM 159 MG/DL (60-99); PHOSPHORUS, SERUM 2.5 MG/DL (2.5-4.5); POTASSIUM, SERUM 4.2 MMOL/L (3.5-5.3); SODIUM, SERUM 127 MMOL/L (135-148)
[2017-02-19 05:27] LABS: BASOPHILS 0.2 %; BASOPHILS ABSOLUTE 0.01 10/3/uL (0.0-0.16); EOSINOPHILS 0 %; IMMATURE GRANULOCYTES 0.4 %; IMMATURE GRANULOCYTES ABSOLUTE 0.02 10/3/uL (0.0-0.11); LYMPHOCYTES 5.9 %; LYMPHOCYTES ABSOLUTE 0.33 10/3/uL (0.67-4.30); MEAN CORPUS HGB CONC 33.5 g/dL (32.0-36.0); MEAN CORPUSCULAR VOLUME 86.5 fL (80-100); MEAN PLATELET VOLUME 10.3 fL (9.2-13.0); MONOCYTES 2.5 %; MONOCYTES ABSOLUTE 0.14 10/3/uL (0.21-1.20); NEUTROPHILS ABSOLUTE 5.06 10/3/uL (2.02-8.40); PLATELET COUNT 285 10/3/uL (150-400); RBC DISTRIBUTION WIDTH 16.4 % (12.0-16.0); RED CELL COUNT 4.14 10/6/uL (4.0-5.6); WHITE BLOOD CELLS 5.6 10/3/uL (4.5-10.5)
[2017-02-19 05:30] LABS: ALBUMIN 2.8 G/DL (3.5-5.0); BUN (BLOOD UREA NITROGEN) 6 MG/DL (6-23); CALCIUM, SERUM 9.1 MG/DL (8.5-10.4); CHLORIDE, SERUM 95 MMOL/L (96-112); CREATININE 0.59 MG/DL (0.55-1.02); GFR AFRICAN AMERICAN 113 ML/MIN (>=60); GFR NON AFRICAN AMERICAN 98 ML/MIN (>=60); HEMATOCRIT 35.8 % (36.0-48.0); MANUAL DIFF NO %; PHOSPHORUS, SERUM 2.4 MG/DL (2.5-4.5); POTASSIUM, SERUM 3.7 MMOL/L (3.5-5.3); SODIUM, SERUM 131 MMOL/L (135-148)
[2017-02-19 05:32] LABS: CO2 (CARBON DIOXIDE) 22 MMOL/L (24-34); GLUCOSE, SERUM 257 MG/DL (60-99)
[2017-02-20 05:18] LABS: BASOPHILS 0.2 %; BASOPHILS ABSOLUTE 0.02 10/3/uL (0.0-0.16); EOSINOPHILS 0.3 %; EOSINOPHILS ABSOLUTE 0.03 10/3/uL (0.0-0.53); HEMATOCRIT 34.4 % (36.0-48.0); HEMOGLOBIN 11.4 g/dL (12.0-16.0); IMMATURE GRANULOCYTES 0.3 %; IMMATURE GRANULOCYTES ABSOLUTE 0.03 10/3/uL (0.0-0.11); LYMPHOCYTES 11.6 %; LYMPHOCYTES ABSOLUTE 1.23 10/3/uL (0.67-4.30); MEAN CORPUS HGB CONC 33.1 g/dL (32.0-36.0); MEAN CORPUSCULAR HEMOGLOB 28.6 pg (26.0-34.0); MEAN CORPUSCULAR VOLUME 86.4 fL (80-100); MEAN PLATELET VOLUME 10.2 fL (9.2-13.0); MONOCYTES 9.9 %; MONOCYTES ABSOLUTE 1.05 10/3/uL (0.21-1.20); NEUTROPHILS 77.7 %; NEUTROPHILS ABSOLUTE 8.27 10/3/uL (2.02-8.40); PLATELET COUNT 346 10/3/uL (150-400); RED CELL COUNT 3.98 10/6/uL (4.0-5.6)
[2017-02-20 05:20] LABS: INTERNATIONAL NORMAL RATI 1.3 UNITS (-)
[2017-02-20 05:23] LABS: MANUAL DIFF NO %; WHITE BLOOD CELLS 10.6 10/3/uL (4.5-10.5)
[2017-02-20 05:27] LABS: PROTIME (NOT ORD) 16.4 SEC (12.0-14.5)
[2017-02-20 05:55] LABS: BUN (BLOOD UREA NITROGEN) 7 MG/DL (6-23); CALCIUM, SERUM 9.3 MG/DL (8.5-10.4); CHLORIDE, SERUM 101 MMOL/L (96-112); CO2 (CARBON DIOXIDE) 20 MMOL/L (24-34); CREATININE 0.55 MG/DL (0.55-1.02); GFR AFRICAN AMERICAN 116 ML/MIN (>=60); GFR NON AFRICAN AMERICAN 100 ML/MIN (>=60); POTASSIUM, SERUM 3.6 MMOL/L (3.5-5.3); SODIUM, SERUM 137 MMOL/L (135-148)
[2017-02-20 05:58] LABS: GLUCOSE, SERUM 176 MG/DL (60-99)
[2017-02-20 13:49] LABS: FREE T4 1.58 NG/DL (0.76-1.46)
[2017-02-21 05:05] LABS: BUN (BLOOD UREA NITROGEN) 6 MG/DL (6-23); CALCIUM, SERUM 9.2 MG/DL (8.5-10.4); CHLORIDE, SERUM 98 MMOL/L (96-112); CREATININE 0.55 MG/DL (0.55-1.02); GFR AFRICAN AMERICAN 116 ML/MIN (>=60); GFR NON AFRICAN AMERICAN 100 ML/MIN (>=60); POTASSIUM, SERUM 3.5 MMOL/L (3.5-5.3); SODIUM, SERUM 137 MMOL/L (135-148)
[2017-02-21 05:06] LABS: CO2 (CARBON DIOXIDE) 26 MMOL/L (24-34); GLUCOSE, SERUM 140 MG/DL (60-99)
[2017-02-22 04:00] LABS: BASOPHILS 0.4 %; BASOPHILS ABSOLUTE 0.03 10/3/uL (0.0-0.16); EOSINOPHILS 2.9 %; EOSINOPHILS ABSOLUTE 0.21 10/3/uL (0.0-0.53); HEMATOCRIT 34.8 % (36.0-48.0); HEMOGLOBIN 11.5 g/dL (12.0-16.0); IMMATURE GRANULOCYTES 0.3 %; IMMATURE GRANULOCYTES ABSOLUTE 0.02 10/3/uL (0.0-0.11); LYMPHOCYTES 23.1 %; LYMPHOCYTES ABSOLUTE 1.69 10/3/uL (0.67-4.30); MEAN CORPUSCULAR HEMOGLOB 28.8 pg (26.0-34.0); MEAN PLATELET VOLUME 9.7 fL (9.2-13.0); MONOCYTES 12.3 %; NEUTROPHILS ABSOLUTE 4.47 10/3/uL (2.02-8.40); PLATELET COUNT 337 10/3/uL (150-400); RBC DISTRIBUTION WIDTH 17.1 % (12.0-16.0); WHITE BLOOD CELLS 7.3 10/3/uL (4.5-10.5)
[2017-02-22 04:01] LABS: MANUAL DIFF NO %
[2017-02-22 04:10] LABS: ALBUMIN 2.7 G/DL (3.5-5.0); BUN (BLOOD UREA NITROGEN) 5 MG/DL (6-23); CALCIUM, SERUM 9.1 MG/DL (8.5-10.4); CHLORIDE, SERUM 98 MMOL/L (96-112); CO2 (CARBON DIOXIDE) 29 MMOL/L (24-34); CREATININE 0.62 MG/DL (0.55-1.02); GFR AFRICAN AMERICAN 111 ML/MIN (>=60); GFR NON AFRICAN AMERICAN 96 ML/MIN (>=60); GLUCOSE, SERUM 133 MG/DL (60-99); POTASSIUM, SERUM 3.6 MMOL/L (3.5-5.3); SODIUM, SERUM 136 MMOL/L (135-148)
[2017-02-22 04:11] LABS: PHOSPHORUS, SERUM 3.6 MG/DL (2.5-4.5)
[2017-02-23] MEDS ORDERED: V5 PO (14:25)
== END 2017-02-23 17:00 | disposition home or self-care (01) | DRG 472 ==
LOC: SDC 08:44 → 3SO 16:15
PROVIDERS: Hospitalist; Internal Medicine; Internal Medicine Nephrology; Nurse Practitioner; Nurse Practitioner Family; Orthopaedic Surgery; Registered Nurse
PROC: 4A11X4G Monitoring of Peripheral Nervous Electrical Activity, Intraoperative, External Approach (ICD-10-PCS; 2017-02-10)
PROC: 0RG20A0 Fusion of 2 or more Cervical Vertebral Joints with Interbody Fusion Device, Anterior Approach, Anterior Column, Open Approach (ICD-10-PCS; principal; 2017-02-10 10:15)
PROC: 0DJ08ZZ Inspection of Upper Intestinal Tract, Via Natural or Artificial Opening Endoscopic (ICD-10-PCS; 2017-02-20)
DX: M50.122 Cervical disc disorder at C5-C6 level with radiculopathy (principal); M50.021 Cervical disc disorder at C4-C5 level with myelopathy; E87.1 Hypo-osmolality and hyponatremia; E11.65 Type 2 diabetes mellitus with hyperglycemia; I10 Essential (primary) hypertension; E66.9 Obesity, unspecified; Z68.38 Body mass index [BMI] 38.0-38.9, adult; K22.70 Barrett's esophagus without dysplasia; G47.33 Obstructive sleep apnea (adult) (pediatric); M79.7 Fibromyalgia; K21.9 Gastro-esophageal reflux disease without esophagitis; E03.9 Hypothyroidism, unspecified; F41.9 Anxiety disorder, unspecified; F32.9 Major depressive disorder, single episode, unspecified
CPT/HCPCS: 74230; 76000; 80048; 80069; 82962; 83036; 83735; 83935; 84295; 84300; 84439; 84443; 84481; 85014; 85018; 85025; 85610; 87641; 88304; 88311; 92526-GN; 92610-GN; 92611-GN; 93005; 97116-GP; 97161-GP; A9270-GY; C1713; C9113; J0360; J0690; J2250; J2405; J2710; J3010